=== PATIENT | male | born 1940 | race Caucasian/White ===

== ENCOUNTER 2024-05-25 19:57 | Observation (INO) | payer MEDICARE, OTHER ==
[2024-05-25 20:10] LABS: BASOPHILS PERCENT AUTO 0.6 % (0.0-1.0); EOSINOPHILS PERCENT AUTO 0.2 % (1.0-3.0); HEMATOCRIT 48.7 % (40.0-54.0); HEMOGLOBIN 16.6 g/dL (14.0-18.0); LYMPHOCYTES PERCENT AUTO 15.5 % (20.5-50.1); MEAN CORPUSCULAR HEMOGLOBIN 33.5 pg (27.0-34.0); MEAN CORPUSCULAR HGB CONC 34.1 g/dL (33.0-35.0); MEAN CORPUSCULAR VOLUME 98.2 fL (80-100); MONOCYTES PERCENT AUTO 13.7 % (2-8); PLATELET COUNT,PLT 203 10^3/uL (150-450); RED BLOOD CELL COUNT 4.96 10^6/uL (4.6-6.2); WHITE BLOOD CELL COUNT,WBC 8.8 10^3/uL (5.0-10.0)
[2024-05-25] MEDS: Iopamidol 755 Mg/ML 100 ML Bottle IVPUSH ONE (20:24)
[2024-05-25 20:27] LABS: A/G RATIO 0.8; ALANINE AMINOTRANSFERASE,ALT 32 U/L (16-63); ALBUMIN 3.9 g/dL (3.4-5.0); ALKALINE PHOSPHATASE 58 U/L (46-116); ANION GAP 18.5 mEq/L (7-13); ASPARTATE AMNIOTRANSFERASE,AST 33 U/L (15-37); BLOOD UREA NITROGEN,BUN 25 mg/dL (7-18); BUN/CREATININE RATIO 18.5 (No establ ref range); CALCIUM 9.4 mg/dL (8.5-10.1); CARBON DIOXIDE,CO2 27 mmol/L (21-32); CHLORIDE,CL 97 mmol/L (98-107); CREATININE 1.35 mg/dL (0.70-1.30); GLUCOSE RANDOM 150 mg/dL (70-99); MAGNESIUM 1.3 mg/dL (1.8-2.4); POTASSIUM,K 4.5 mmol/L (3.5-5.1); PROTEIN TOTAL,TP 8.7 g/dL (6.4-8.2); SODIUM,NA 138 mmol/L (136-145)
[2024-05-25 20:29] LABS: ESTIMATED GFR 51 mL/min (>=60); LACTIC ACID 2.8 mmol/L (0.4-2.0)
[2024-05-25 20:36] LABS: INR 1.2 (0.9-1.2); PROTHROMBIN TIME 12.3 SEC (9.0-12.0)
[2024-05-25 21:22] LABS: AMPHETAMINES,URINE NEGATIVE (NEGATIVE); BARBITURATES,URINE NEGATIVE (NEGATIVE); BENZODIAZEPINE,URINE NEGATIVE (NEGATIVE); MDMA (ECSTASY), URINE NEGATIVE (NEGATIVE); METHADONE,URINE NEGATIVE (NEGATIVE); METHAMPHETAMINES,URINE NEGATIVE (NEGATIVE); OPIATES,URINE NEGATIVE (NEGATIVE); OXYCODONE,URINE NEGATIVE (NEGATIVE); PHENCYCLIDINE,URINE NEGATIVE (NEGATIVE); TCA,URINE NEGATIVE (NEGATIVE)
[2024-05-25 21:37] LABS: TSH ULTRASENSITIVE 2.37 uIU/mL (0.36-3.74); URIC ACID 4.7 mg/dL (3.5-7.2)
[2024-05-25 21:43] LABS: ETHANOL BLOOD MEDICAL < 3 mg/dL (0)
[2024-05-25 21:46] LABS: O2 DELIVERY DEVICE ROOM AIR
[2024-05-25 21:47] LABS: BASE EXCESS VENOUS 3.1 mmol/l ((-2)-(+3)); BICARBONATE,VENOUS 28 mmol/l (19-25); O2 SATURATION VENOUS 46.8 % (60-80); PCO2 VENOUS 46 mmHg (41-51); PO2 VENOUS 30 mmHg (35-42)
[2024-05-25] MEDS: Aspirin 81 MG Tab.Chew PO ONE (21:51)
[2024-05-26] MEDS ORDERED: Ondansetron 4 MG/2 ML SDV IVPUSH PRN (00:35)
[2024-05-26] MEDS ORDERED: oxyCODONE 5 MG Tab PO PRN (00:35)
[2024-05-26] MEDS ORDERED: Albuterol/Ipratropium 3.0-0.5 MG/3 ML Neb Soln NEB PRN (00:35)
[2024-05-26] MEDS ORDERED: Docusate Sodium 100 MG Cap PO PRN (00:35)
[2024-05-26] MEDS: Dexamethasone 4 MG/ML SDV IVPUSH ONE (01:08)
[2024-05-26] MEDS: Sodium Chloride 0.9% 1,000 ML IV ONE (01:09)
[2024-05-26 01:17] LABS: C-REACTIVE PROTEIN 2.08 ng/dL (<=0.50)
[2024-05-26] MEDS: Acetaminophen 325 MG Tab PO ONE (01:18)
[2024-05-26] MEDS: Famotidine 20 MG/2 ML SDV IVPUSH SCH (01:27)
[2024-05-26] MEDS: Magnesium Sulfate/Water Premix 4 GM in Premix Bag 1 BAG IV ONE (02:04)
[2024-05-26] MEDS: Nirmatrelvir/Ritonavir 150 MG/100 MG Dose Pack (Renal Dose) PO SCH ×2 (02:27→10:43)
[2024-05-26] MEDS ORDERED: Acetaminophen 325 MG Tab PO PRN (04:00)
[2024-05-26] MEDS: Sodium Chloride 0.9% 250 ML IV SCH (04:46)
[2024-05-26] MEDS: Non-Formulary Medication 1 Each (Gabapentin 800 MG Tablet) PO SCH (10:42)
[2024-05-26] MEDS: Allopurinol 300 MG Tab PO SCH (10:43)
[2024-05-26] MEDS: Aspirin 81 MG Tab.EC PO SCH (10:44)
[2024-05-26] MEDS: Dexamethasone 6 MG TABLET PO SCH (10:44)
[2024-05-26 11:03] LABS: ANION GAP 17.7 mEq/L (7-13); CALCIUM 10.1 mg/dL (8.5-10.1); CREATININE 1.36 mg/dL (0.70-1.30); EST CRCL DRUG DOSING (CG) 43.59 mL/min; POTASSIUM,K 3.7 mmol/L (3.5-5.1)
[2024-05-26 13:11] VITALS: BP 158/92; PULSE 80
[2024-05-26] MEDS ORDERED: Magnesium Oxide 400 MG Tab PO SCH (21:00)
[2024-05-26] MEDS ORDERED: atorvaSTATin 20 MG Tab PO SCH (21:00)
== END 2024-05-26 14:50 | disposition home or self-care (01) ==
LOC: DL.ED 19:57 → DL.MS 05-26 00:07
PROVIDERS: ADMIT Internal Medicine; ATTEND Internal Medicine
DX: U07.1 COVID-19 (principal); J12.82 Pneumonia due to coronavirus disease 2019; N17.9 Acute kidney failure, unspecified; I10 Essential (primary) hypertension; E11.9 Type 2 diabetes mellitus without complications; E78.5 Hyperlipidemia, unspecified; Z79.82 Long term (current) use of aspirin; Z79.84 Long term (current) use of oral hypoglycemic drugs; Z79.899 Other long term (current) drug therapy; Z91.041 Radiographic dye allergy status; Z91.018 Allergy to other foods
CPT/HCPCS: 36415; 70450; 70496; 70498; 71045; 80048; 80053; 80305; 80307; 82728; 82803; 82947; 83605; 83615; 83735; 84145; 84443; 84484; 84550; 85025; 85379; 85610; 85730; 86140; 87040; 87428; 93005; 96361; 96374; 97161; 97165; 99285; A9270; J1100; J3475; J3490; J7030; J7050; J8540; Q9967; 96365; 96366; 96375; G0378

== ENCOUNTER 2025-03-09 10:37 | Emergency (ER) | payer MEDICARE, OTHER ==
[2025-03-09 14:50] VITALS: PULSE 78
[2025-03-09 14:51] VITALS: BP 142/92
== END 2025-03-09 12:39 | disposition home or self-care (01) ==
LOC: DL.ED 10:37
DX: S00.83XA Contusion of other part of head, initial encounter (principal); S00.212A Abrasion of left eyelid and periocular area, initial encounter; I10 Essential (primary) hypertension; E66.9 Obesity, unspecified; Z91.041 Radiographic dye allergy status; Z91.018 Allergy to other foods; Z79.899 Other long term (current) drug therapy; Z79.84 Long term (current) use of oral hypoglycemic drugs; Z90.49 Acquired absence of other specified parts of digestive tract; W01.0XXA Fall on same level from slipping, tripping and stumbling without subsequent striking against object, initial encounter
CPT/HCPCS: 70450; 70486; 99283